=== PATIENT | female | born 1955 | race Caucasian/White ===

== ENCOUNTER 2021-05-24 08:31 | Emergency (ER) | payer OTHER ==
[~2021-05-24 08:31] MED LIST: ASPIR 8181 MG PO; PERCOCET 5-3251 EACH PO; TERBINAFINE HC250 MG PO; TUMERIC PO; VITAMIN PACK PO
[2021-05-24] MEDS ORDERED: PERCOCET 5-3251 EACH PO (10:36)
== END 2021-05-24 11:05 | disposition home or self-care (01) ==
LOC: FER 08:31
DX: M17.12 Unilateral primary osteoarthritis, left knee (principal); Z90.49 Acquired absence of other specified parts of digestive tract
CPT/HCPCS: 73564

== ENCOUNTER 2021-08-05 09:45 | Day surgery (SDC) | payer OTHER ==
[~2021-08-05] VITALS: Ht 168 cm; Wt 100.0 kg
[~2021-08-05 09:45] MED LIST changes: +ACETAMINOPHEN-1 EAC1 PO; +ASCORBIC ACID500 MG PO; -ASPIR 8181 MG PO; +ASPIRIN81 MG PO
--- NOTE | 2021-08-05 16:25 | NUR ---
PT. HAD A LTKR THIS DATE. PT. REQUESTS [facility]. FIRST APPT. IS 08/07/21 @ 9:15 [facility] A [facility] UPON DISCHARGE. CHOICE FORM SIGNED.
[2021-08-06 06:34] LABS: BASOPHIL 0.1 % (0-2); EOSINOPHIL 0 % (0-7); HCT 35.7 % (37.0-47.0); HGB 11.3 g/dl (12.5-16.0); LYMPHOCYTE 11.4 % (15-48); MCH 28.5 pg (25.0-31.0); MCHC 31.7 g/dL (32.0-36.0); MCV 89.9 fL (78.0-100.0); MONOCYTE 5.6 % (0-12); MPV 9.8 fL (6.0-9.5); NEUTROPHIL 82.5 % (41-80); NRBC 0; PLT 195 K/uL (150-400); RBC 3.97 M/uL (4.20-5.40); RDW 12.4 % (11.5-14.0); WBC 12.3 K/uL (4.0-10.5)
[2021-08-06 06:52] LABS: CREATININE 0.47 mg/dL (0.51-0.95); POTASSIUM 4.5 mmol/L (3.5-5.1)
[2021-08-06] MEDS ORDERED: XARELTO10 MG PO (09:29)
[2021-08-06] MEDS ORDERED: FEOSOL325 MG PO (09:29)
--- NOTE | 2021-08-06 10:07 | NUR ---
PT HAS CHANGED HER MIND AND NOW WANTS [facility] FOR PT. ADVISED ERICKA WITH [facility] AND SENT HER THE REQUIRED INFORMATION.
--- NOTE | 2021-08-06 10:43 | NUR ---
CALLED [facility] SPOKE WITH [facility], SHE ADVISED THAT [facility] IS $15.70. ADVISED PT AND SHE WAS IN AGREEMENT WITH THE HE.
== END 2021-08-06 12:40 | disposition home health service (06) ==
LOC: FAS 09:45 → FMS 13:25 → FAS 13:25 → FMS 08-06 12:40 → FAS 08-06 12:40
PROVIDERS: Orthopaedic Surgery
DX: M17.12 Unilateral primary osteoarthritis, left knee (principal); I73.9 Peripheral vascular disease, unspecified; Z86.718 Personal history of other venous thrombosis and embolism; Z88.8 Allergy status to other drugs, medicaments and biological substances; Z79.891 Long term (current) use of opiate analgesic; Z79.82 Long term (current) use of aspirin; Z79.899 Other long term (current) drug therapy; Z96.651 Presence of right artificial knee joint; Z90.49 Acquired absence of other specified parts of digestive tract
CPT/HCPCS: 36415; 73560; 80048; 85025; 86850; 86900; 86901; 94010; 94760; 94762; 97162; 97166; 97530-GP; 97535; C1713; C1776; J0171; J0697; J1100; J1170; J1885; J2250; J2405; J2704; J2795; J3010; J3490; J7120

== ENCOUNTER → 2021-10-15 | Day surgery (SDC) | payer OTHER ==
[~2021-10-15] VITALS: Ht 168 cm; Wt 104.5 kg
[~2021-10-15] MED LIST changes: +FEOSOL325 MG PO; +XARELTO10 MG PO
[2021-10-15 06:45] LABS: HCT 41.7 % (37.0-47.0); HGB 13.3 g/dl (12.5-16.0); MCHC 31.9 g/dL (32.0-36.0); MCV 87.8 fL (78.0-100.0); MPV 9.4 fL (6.0-9.5); RBC 4.75 M/uL (4.20-5.40); RDW 11.9 % (11.5-14.0); WBC 8.6 K/uL (4.0-10.5)
[2021-10-15 07:09] LABS: ALBUMIN 3.6 g/dL (3.4-5.0); BILIRUBIN - TOTAL 0.4 mg/dL (0.2-1.0); BUN/CREAT RATIO (CALC) 45.8 RATIO; CREATININE 0.48 mg/dL (0.51-0.95); POTASSIUM 3.9 mmol/L (3.5-5.1); TOTAL PROTEIN 7.6 g/dL (6.4-8.2)
== END | disposition home or self-care (01) ==
LOC: FAS 06:01
PROVIDERS: Orthopaedic Surgery
DX: M25.662 Stiffness of left knee, not elsewhere classified (principal); G89.18 Other acute postprocedural pain; M19.90 Unspecified osteoarthritis, unspecified site; E66.9 Obesity, unspecified; Z96.652 Presence of left artificial knee joint; Z79.82 Long term (current) use of aspirin; Z79.899 Other long term (current) drug therapy; Z88.8 Allergy status to other drugs, medicaments and biological substances
CPT/HCPCS: 36415; 80053; J1100; J2250; J2704; J2795; J3010; J7120

== ENCOUNTER 2022-04-28 10:16 | Emergency (ER) | payer OTHER | END 2022-04-28 14:00 | disposition home or self-care (01) | LOC: FER 10:16 | DX: S83.421A Sprain of lateral collateral ligament of right knee, initial encounter (principal); E11.9 Type 2 diabetes mellitus without complications; W19.XXXA Unspecified fall, initial encounter; X50.1XXA Overexertion from prolonged static or awkward postures, initial encounter | CPT/HCPCS: 73560; Q0162 ==